=== PATIENT | male | born 1995 | race Two or more races ===

== ENCOUNTER 2019-11-04 15:54 | Inpatient (IN) | payer MEDICAID ==
[~2019-11-04] VITALS: Ht 170.2 cm; Wt 72.8 kg
[2019-11-04] MEDS ORDERED: QUET300T2 PO (16:24)
[2019-11-04] MEDS ORDERED: QUEtiapine FUMARATE 100 MG TABLET PO PRN (16:45)
[2019-11-04] MEDS ORDERED: ZOLPIDEM TARTRATE 10 MG TABLET PO PRN (16:45)
[2019-11-04] MEDS ORDERED: LORazepam 2 MG TABLET PO PRN (16:45)
[2019-11-04 17:54] VITALS: BP 111/70
[2019-11-04 17:56] VITALS: BP 109/64
[2019-11-04] MEDS ORDERED: INFLUENZA VIRUS VACCINE QVS 2019-20 (3YR+)/PF 60 MCG/0.5 ML SYRINGE IM ONE (18:15)
[2019-11-04] MEDS: QUEtiapine FUMARATE 300 MG TABLET PO SCH (21:20)
[2019-11-05 00:13] VITALS: BP 108/62
[2019-11-05 07:30] LABS: BASOPHILS % (AUTO) 0.5 % (0.0-2.0); EOSINOPHILS % (AUTO) 3.4 % (1.0-6.0); HEMATOCRIT 43.9 % (41-53); HEMOGLOBIN 15.1 g/dL (13.5-17.5); LYMPHOCYTES # (AUTO) 2.2 K/uL (1.0-4.8); LYMPHOCYTES % (AUTO) 44.6 % (22.0-44.0); MEAN CORPUSCULAR HEMOGLOBIN 31.2 pg (26.0-34.0); MEAN CORPUSCULAR HGB CONC 34.3 G/dL (31.0-37.0); MEAN CORPUSCULAR VOLUME 91 fL (80-100); MONOCYTES # (AUTO) 0.6 K/uL (0.1-1.0); MONOCYTES % (AUTO) 11.4 % (2.0-9.0); NEUTROPHILS % (AUTO) 40.1 % (40.0-70.0); PLATELET COUNT (AUTO) 226 K/uL (150-450); RED BLOOD CELL COUNT(AUTO) 4.83 MIL/uL (4.50-5.90); RED CELL DISTRIBUTION WIDTH 12.8 % (11.5-14.5)
[2019-11-05 07:39] LABS: HEMOGLOBIN A1C 5.6 % (3.8-5.6)
[2019-11-05 07:52] LABS: ALANINE AMINOTRANSFERASE 18 U/L (12-78); ALKALINE PHOSPHATASE 92 U/L (46-116); ANION GAP 4 mmol/L (8-16); ASPARTATE AMINOTRANSFERASE 11 U/L (15-37); BILIRUBIN,TOTAL 0.3 mg/dL (0.1-1.0); CALCIUM, TOTAL 8.7 mg/dL (8.8-10.5); CARBON DIOXIDE 32 mmol/L (22-29); CHLORIDE 103 mmol/L (98-107); CHOL/HDL RATIO 3.8 (4.2-7.3); CHOLESTEROL 169 mg/dL (131-200); CREATININE 1.24 mg/dL (0.60-1.30); FREE T4 (FREE THYROXINE) 0.96 ng/dL (0.76-1.46); GLOMERULAR FILTR. RATE CALC > 60 mL/min (>60); GLUCOSE,RANDOM 89 mg/dL (70-110); HDL CHOLESTEROL 45 mg/dL (40-60); LDL CHOL (CALC.) 116 mg/dL (0-130); POTASSIUM 3.6 mmol/L (3.5-5.1); SODIUM SERUM 139 mmol/L (136-145); THYROID STIMULATING HORMONE 3.79 uIU/mL (0.36-3.74); TRIGLYCERIDES 41 mg/dL (15-150); UREA NITROGEN, BLOOD 16 mg/dL (7-18)
[2019-11-05 08:31] VITALS: BP 114/74
[2019-11-05] MEDS ORDERED: CloNIDine HCL 0.1 MG TABLET PO PRN (10:30)
[2019-11-05] MEDS ORDERED: LOPERAMIDE HCL 2 MG CAPSULE PO PRN (10:30)
[2019-11-05] MEDS ORDERED: MAG HYDROX/AL HYDROX/SIMETH ES 30 ML SUSPENSION UDCUP PO PRN (10:30)
[2019-11-05] MEDS ORDERED: NICOTINE 14 MG/24 HOUR PATCH TD PRN (10:30)
[2019-11-05] MEDS ORDERED: ACETAMINOPHEN 325 MG TABLET PO PRN (10:30)
[2019-11-05] MEDS ORDERED: ALBUTEROL SULFATE HFA 90 MCG/PUFF 8 GM INHALER IH PRN (10:30)
[2019-11-05] MEDS ORDERED: PETROLATUM,WHITE 28 GM JELLY TP PRN (10:30)
[2019-11-05] MEDS ORDERED: IBUPROFEN 400 MG TABLET PO PRN (10:30)
[2019-11-05] MEDS ORDERED: GuaiFENesin/D-METHORPHAN [SUGAR-FREE] 200-20MG/10 ML SYRUP UDCUP PO PRN (10:30)
[2019-11-05] MEDS ORDERED: DOCUSATE SODIUM 100 MG CAPSULE PO PRN (10:30)
[2019-11-05] MEDS ORDERED: MAGNESIUM HYDROXIDE SUSPENSION 30 ML UDCUP PO PRN (10:30)
[2019-11-05] MEDS ORDERED: ONDANSETRON HCL 4 MG TABLET PO PRN (10:30)
[2019-11-05 16:10] VITALS: BP 124/79
[2019-11-05] MEDS: QUEtiapine FUMARATE 300 MG TABLET PO SCH (21:10)
[2019-11-06 01:28] VITALS: BP 104/60
[2019-11-06 08:03] VITALS: BP 110/64
[2019-11-06 16:05] VITALS: BP 131/90
[2019-11-06] MEDS: QUEtiapine FUMARATE 300 MG TABLET PO SCH (21:30)
[2019-11-07 00:03] VITALS: BP 113/71
[2019-11-07 08:32] VITALS: BP 129/89
[2019-11-07 16:06] VITALS: BP 119/77
[2019-11-07] MEDS: QUEtiapine FUMARATE 300 MG TABLET PO SCH (21:52)
[2019-11-08 00:18] VITALS: BP 100/61
[2019-11-08 08:07] VITALS: BP 132/69
[2019-11-08] MEDS ORDERED: QUET300T18 PO (11:12)
== END 2019-11-08 12:45 | disposition home or self-care (01) | DRG 753 ==
LOC: B2S 16:46
DX: F31.63 Bipolar disorder, current episode mixed, severe, without psychotic features (principal); R45.851 Suicidal ideations; Z91.19 Patient's noncompliance with other medical treatment and regimen; F20.9 Schizophrenia, unspecified; E03.9 Hypothyroidism, unspecified; F10.10 Alcohol abuse, uncomplicated; F12.10 Cannabis abuse, uncomplicated; Z79.899 Other long term (current) drug therapy
CPT/HCPCS: 83036; 84439; 84443; 87081; J3535